=== PATIENT | female | born 1975 | race Asian ===

== ENCOUNTER 2021-12-03 22:50 | Emergency (ER) | payer MEDICAID ==
[~2021-12-03] VITALS: Ht 162.6 cm; Wt 66.0 kg
[2021-12-04] MEDS ORDERED: MAGNESIUM HYDROXIDE 400MG/5ML 30ML UDC PO ONE (01:30)
[2021-12-04] MEDS ORDERED: HYDROCODONE/ACETAMINOPHEN 10/325MG TABLET PO ONE (01:30)
[2021-12-04] MEDS ORDERED: NA PHOS,M-B/NA PHOS,DI-BA ENEMA 118ML PR ONE (01:30)
[2021-12-04] MEDS ORDERED: MAGNESIUM HYDROXIDE 400MG/5ML 30ML UDC PO NR (02:00)
[2021-12-04 03:57] LABS: CHLORIDE 100 mEq/L (98-107)
[2021-12-04 03:59] LABS: HEMATOCRIT 28.5 % (36.0-48.0); HEMOGLOBIN 9.7 g/dL (12.0-16.0); MEAN CORPUSCULAR VOLUME 75.8 fL (81.0-99.0); PLATELET 179 x1000/uL (130-400); RED BLOOD CELL COUNT 3.75 mill/uL (4.2-5.4); RED CELL DISTRIBUTION WIDTH 15.6 % (11.6-14.6)
[2021-12-04 04:04] VITALS: BP 122/81
== END 2021-12-04 05:03 | disposition home or self-care (01) ==
LOC: ER 22:50
DX: K59.00 Constipation, unspecified (principal); N17.9 Acute kidney failure, unspecified; D64.9 Anemia, unspecified; C50.919 Malignant neoplasm of unspecified site of unspecified female breast; R00.0 Tachycardia, unspecified
CPT/HCPCS: 36415; 80053; 85027; 93005; 99284